=== PATIENT | male | born 1970 | race Caucasian/White ===

== ENCOUNTER → 2018-06-21 15:43 | Outpatient (CLI) | payer BC, SELFPAY | PROVIDERS: Family Provider Family Medicine; PCP Family Medicine; Visit Provider Otolaryngology Otolaryngology/Facial Plastic Surgery | DX: J32.9 Chronic sinusitis, unspecified (principal) | CPT/HCPCS: 87070; 87186; 87205 ==

== ENCOUNTER → 2021-05-31 10:21 | Outpatient (CLI) | payer OTHER, SELFPAY ==
--- NOTE | 2021-05-31 10:31 | BD_ITS ---
STUDY: DUAL ENERGY X-RAY ABSORPTIOMETRY / DXA REASON FOR EXAM: Male, 51 years old. S32.010A -- COMPRESSION FX TECHNIQUE: Bone Mineral Density (BMD) measurements of lumbar spine and bilateral hips were obtained. COMPARISON: None. FINDINGS: Lumbar Spine (L1-L4): g/cm2 (0.833) / T-score (-2.3) / Z-score (-2.0) Findings are suggestive of osteopenia with a high fracture risk. Left Femur Total: g/cm2 (0.808) / T-score (-1.5) / Z-score (-1.2) Left Femoral Neck: g/cm2 (0.739) / T-score (-1.4) / Z-score (-0.7) Right Femur Total: g/cm2 (0.883) / T-score (-1.0) / Z-score (-0.7) Right Femoral Neck: g/cm2 (0.774) / T-score (-1.1) / Z-score (-0.4) BD/Dexa Bone Density Study IMPRESSION: The patient is considered osteopenic as outlined below according to World Sunil Organization (WHO) criteria with a high fracture risk. Reference Information: The T-score is the number of standard deviations above or below the standard which is normal for young adults at their peak bone mineral density. The World Health Organization (WHO) interprets the T-scores as follows: Above -1 Normal bone density Between -1 and -2.5 Osteopenia Equal to / or below -2.5 Osteoporosis As a practical clinical guideline, osteopenia may be graded as follows: Mild -1 through -1.5 Moderate -1.6 through -2.0 Severe -2.1 through -2.4 The Z-score is the number of standard deviations above or below age-matched controls. A Z-score of less than -1.5 would be considered abnormal. References: 1. NIH Osteoporosis and Related Bone Diseases www osteo.org 2. International Society for Clinical Densitometry www iscd.org 3. National Osteoporosis Foundation www nof.org Electronically Signed: Ha Grier MD at 15:09 EDT , Service support ,
== END ==
PROVIDERS: PCP Family Medicine; Referring Provider Family Medicine; Visit Provider Family Medicine
DX: S32.010A Wedge compression fracture of first lumbar vertebra, initial encounter for closed fracture (principal)
CPT/HCPCS: 77080

== ENCOUNTER → 2023-04-16 | Outpatient (CLI) | payer BC, SELFPAY ==
[2023-04-16 11:27] LABS: Hematocrit 44.9 % (40-54); Hemoglobin 15.2 g/dL (13.0-16.5); Mean Corp Hgb Conc 33.9 g/dL (32-36); Mean Corpuscular Hgb 30.3 pg (27.0-32.0); Mean Corpuscular Volume 89.4 fL (80-94); Mean Platelet Vol. 9.8 fl (6.2-12.0); Platelet Count 255 K/mm3 (150-450); RBC Distribution Width CV 13.3 % (11.6-14.6); Red Blood Count 5.02 M/mm3 (4.6-6.2); White Blood Count 5.9 K/mm3 (4.4-11.0)
[2023-04-16 11:40] LABS: Prothrombin Time (Protime)PT. 13.1 SECONDS (11.7-14.9)
[2023-04-16 11:41] LABS: Partial Thromboplast Time 30.1 Seconds (24.1-36.2)
== END | disposition home or self-care (01) ==
LOC: PAVLAB 11:06
PROVIDERS: PCP Family Medicine; Referring Provider Internal Medicine Critical Care Medicine; Visit Provider Internal Medicine Critical Care Medicine
DX: R59.0 Localized enlarged lymph nodes (principal)
CPT/HCPCS: 36415; 85027; 85610; 85730

== ENCOUNTER 2023-04-27 10:31 | Day surgery (SDC) | payer BC, SELFPAY ==
--- NOTE | 2023-04-27 | ASPIG_PTH ---
PATIENT: ADAM CERDA LOC: EN U#:[id number] AGE/SX: 52/M ROOM: RE04/27/[address]: Dr. Gustavo Alcantara MD : 1970 BED: DIS: 04/27/2023 SPEC #: [id number] RECD: 04/27/23 15:00 STATUS: BOWEN ANNY #: [id number] RACHNA: 04/27/23 00:[address]: Gustavo Alcantara DEPT: CYTOLOGY RECD BY: Kd Easley ENTERED: 04/30/23 07:07 SP TYPE: ASP OUT OTHR DR: Dr. Dinesh Lamar MD Tissues: A - Lung, NOS B - Lung, NOS C - Lung, NOS D - Lung, NOS E - Lung, NOS F - Lung, NOS G - Lung, NOS H - Lung, NOS I - Lung, NOS J - Lung, NOS K - Lung, NOS Procedures: FNA Specimen Adequacy Special Stain Group II Surgery Specimen Level IV Cytology Other HEADER OPERATION: Endobronchial ultrasound PRE-OP DIAGNOSIS: Mediastinal lymphadenopathy TISSUE SUBMITTED: A - EBUS, TBNA, site 7 #1, B - EBUS, TBNA, site 7 #2, C - EBUS, TBNA, site 7 #3, D - EBUS, TBNA, site 7 #4, E - EBUS, TBNA, site 7 #5, F - EBUS, TBNA, site 7 #6, G - EBUS, TBNA, site 7 #7, H - EBUS, TBNA, site 4R #8, I - EBUS, TBNA, site 4R #9, J - EBUS, TBNA, site 7, K - EBUS, TBNA, site 4R DIAGNOSIS CYTOLOGY A. EBUS, TBNA, site 7 #1 (smears): Respiratory epithelial cells noted. Negative for malignant cells. B. EBUS, TBNA, site 7 #2 (smears): Bloody specimen. Respiratory epithelial cells noted. Negative for malignant cells. C. EBUS, TBNA, site 7 #3 (smears): Respiratory epithelial cells and cartilage noted. Negative for malignant cells. D. EBUS, TBNA, site 7 #4 (smears): Bloody specimen. A few lymphocytes noted. Negative for malignant cells or granulomas. E. EBUS, TBNA, site 7 #5 (smears): Bloody specimen. Respiratory epithelial cells noted. Negative for malignant cells. F. EBUS, TBNA, site 7 #6 (smears): Bloody specimen. Respiratory epithelial cells noted. Negative for malignant cells. G. EBUS, TBNA, site 7 #7 (smears): Bloody specimen. H. EBUS, TBNA, site 4R #8 (smears): Paucicellular specimen, respiratory epithelial cells noted. Negative for malignant cells. I. EBUS, TBNA, site 4R #9 (smears): Respiratory epithelial cells and a few lymphocytes noted. J. EBUS, TBNA, site 7 fluid (cytospin and cell block): Negative for malignant cells. See cytology study and comment. K. EBUS, TBNA, site 4R fluid (cytospin and cell block): Negative for malignant cells. See cytology study and comment. SJ:edis 04/30/2023 COMMENT The specimen is evaluated at the time of procedure by Dr. Moses. Rapid On-site Evaluation: A. EBUS, TBNA, site 7 #1: Respiratory epithelial cells noted. Negative for malignant cells. B. EBUS, TBNA, site 7 #2: Bloody specimen. Respiratory epithelial cells noted. Negative for malignant cells. C. EBUS, TBNA, site 7 #3: Respiratory epithelial cells and cartilage noted. Negative for malignant cells. D. EBUS, TBNA, site 7 #4: Bloody specimen. A few lymphocytes noted. Negative for malignant cells or granulomas. E. EBUS, TBNA, site 7 #5: Bloody specimen. Respiratory epithelial cells noted. Negative for malignant cells. F. EBUS, TBNA, site 7 #6: Bloody specimen. Respiratory epithelial cells noted. Negative for malignant cells. G. EBUS, TBNA, site 7 #7: Bloody specimen. H. EBUS, TBNA, site 4R #8: Respiratory epithelial cells noted. Negative for malignant cells. I. EBUS, TBNA, site 4R #9: Respiratory epithelial cells and a few lymphocytes noted. A-I. Granulomas are not seen. Correlation with clinical, radiologic findings and appropriate follow up are necessary. CYTOLOGY STUDY Slides are reviewed. J. The specimen is bloody and shows rare respiratory epithelial cells and rare lymphocytes. Negative for granuloma. K. The specimen is paucicellular and consists of rare lymphocytes and respiratory epithelial cells. Granulomas are not seen. CYTOLOGY GROSS A - Received labeled with the patient's name and and designated EBUS, TBNA, site 7 #1. The specimen consists of two stained smears for ROBB (Rapid On-site Evaluation). B - Received labeled with the patient's name and and designated EBUS, TBNA, site 7 #2. The specimen consists of two stained smears for ROBB. C - Received labeled with the patient's name and and designated EBUS, TBNA, site 7 #3. The specimen consists of two stained smears for ROBB. D - Received labeled with the patient's name and and designated EBUS, TBNA, site 7 #4. The specimen consists of two stained smears for ROBB. E - Received labeled with the patient's name and and designated EBUS, TBNA, site 7 #5. The specimen consists of two stained smears for ROBB. F - Received labeled with the patient's name and and designated EBUS, TBNA, site 7 #6. The specimen consists of two stained smears for ROBB. G - Received labeled with the patient's name and and designated EBUS, TBNA, site 7 #7. The specimen consists of two stained smears for ROBB. H - Received labeled with the patient's name and and designated EBUS, TBNA, site 4R #8. The specimen consists of two stained smears for ROBB. I - Received labeled with the patient's name and and designated EBUS, TBNA, site 4R #9. The specimen consists of two stained smears for ROBB. J - Received in RPMI is 20 ml of pink, needle rinsed fluid labeled with the patient's name and and designated EBUS, TBNA, site 7. The specimen is submitted for cell block preparation. K - Received in RPMI is 20 ml of pink, needle rinsed fluid labeled with the patient's name and and designated EBUS, TBNA, site 4R. The specimen is submitted for cell block preparation. / ANAYELI:edis 04/27/2023 TC:5 CPT: 92248 x2, 52474 x9, 51253 x2, 62939 x2
[2023-04-27 10:50] VITALS: BP 121/67; PULSE 62; RESP 16; TEMP 36.1; O2SAT 100; BMI 24.5
[2023-04-27] MEDS: Lidocaine Jelly 2% 20 ML Syringe (URO-JET) 1 APPLIC (12:30)
--- NOTE | 2023-04-27 14:03 | OP.BRONCH_ITS ---
Patient Name: Jam Henderson Procedure Date: 04/27/2023 12:04 PM Date of : 1970 Age: 52 Procedure: Bronchoscopy Indications: Mediastinal adenopathy Providers: Gustavo Alcantara MD Medicines: See the Anesthesia note for documentation of the administered medications Complications: No immediate complications Procedure: Pre-Anesthesia Assessment: - A History and Physical has been performed. Patient meds and allergies have been reviewed. The risks and benefits of the procedure and the sedation options and risks were discussed with the patient. All questions were answered and informed consent was obtained. Patient identification and proposed procedure were verified prior to the procedure by the physician, the nurse and the client care consultant in the procedure room. Mental Status Examination: alert and oriented. Airway Examination: normal oropharyngeal airway. Respiratory Examination: clear to auscultation. CV Examination: RRR, no murmurs, no S3 or S4. ASA Grade Assessment: II - A patient with mild systemic disease. After reviewing the risks and benefits, the patient was deemed in satisfactory condition to undergo the procedure. The anesthesia plan was to use monitored anesthesia care (MAC). Immediately prior to administration of medications, the patient was re-assessed for adequacy to receive sedatives. The heart rate, respiratory rate, oxygen saturations, blood pressure, adequacy of pulmonary ventilation, and response to care were monitored throughout the procedure. The physical status of the patient was re-assessed after the procedure. After I obtained informed consent, the scope was passed under direct vision. Throughout the procedure, the patient's blood pressure, pulse, and oxygen saturations were monitored continuously. The ultrasound bronchoscope was introduced through the mouth, via laryngeal mask airway and advanced to the tracheobronchial tree. The procedure was accomplished without difficulty. The patient tolerated the procedure well. Findings: The laryngeal mask airway is in good position. The vocal cords appear normal. The subglottic space is normal. The trachea is of normal caliber. The suni is sharp. The tracheobronchial tree was examined to at least the first subsegmental level. Bronchial mucosa and anatomy are normal; there are no endobronchial lesions, and no secretions. The scope was withdrawn and replaced with the EBUS bronchoscope to accomplish the ultrasound examination. Lymph Nodes: An endobronchial ultrasound endoscope was utilized to systematically examine the right lower paratracheal region (level 4R) and subcarinal mediastinum (level 7) in order to assist with fine needle aspiration. Lymph node sizing was performed via endobronchial ultrasound. Sampling by transbronchial needle aspiration was also performed using an Olympus EBUS-TBNA 21 gauge needle in the right lower paratracheal region (level 4R) and subcarinal mediastinum (level 7) and sent for routine cytology. - The 7 (subcarinal) node was 20 mm by EBUS. Seven samples with the needle were obtained. - The 4R (lower paratracheal) node was 15 mm by EBUS. Three samples with the needle were obtained. Lymph Nodes: Lymph Nodes: Rapid On-Site Evaluation (ROBB): Preliminary cytology was suggestive of benign-appearing lymphoid tissue (final results are pending) in the subcarinal mediastinum (level 7). The cellularity of the specimen was adequate in the right lower paratracheal region (level 4R). Bronchoalveolar lavage was performed in the RUL apical segment (B1) of the lung and sent for CD4:CD8. 60 mL of fluid were instilled. 25 mL were returned. The return was clear. There were no mucoid plugs in the return fluid. Multiple specimens were obtained and pooled into one specimen, which was sent for analysis. Impression: - Mediastinal adenopathy - The airway examination was normal. - Endobronchial ultrasound was performed. - Lymph node sizing and sampling was performed. Tissue has not been obtained. However, the clinical appearance is suggestive of sarcoid. - Rapid On-Site Evaluation (RBOB): Preliminary cytology was suggestive of benign-appearing lymphoid tissue in node level 7 and the cellularity of the specimen was adequate in node level 4R (final results are pending). - Bronchoalveolar lavage was performed. Recommendation: - The patient will be observed post-procedure, until all discharge criteria are met. - Await BAL and cytology results. - Patient has a contact number available for emergencies. The signs and symptoms of potential delayed complications were discussed with the patient. Return to normal activities tomorrow. Written discharge instructions were provided to the patient. Procedure Code(s): --- Professional --- 48571, Bronchoscopy, rigid or flexible, including fluoroscopic guidance, when performed; with endobronchial ultrasound (EBUS) guided transtracheal and/or transbronchial sampling (eg, aspiration[s]/biopsy[ies]), 3 or more mediastinal and/or hilar lymph node stations or structures 28072, Bronchoscopy, rigid or flexible, including fluoroscopic guidance, when performed; with bronchial alveolar lavage Diagnosis Code(s): --- Professional --- R59.0, Localized enlarged lymph nodes R09.89, Other specified symptoms and signs involving the circulatory and respiratory systems CPT copyright 2017 [employer]. All rights reserved. The codes documented in this report are preliminary and upon hydro operator review may be revised to meet current compliance requirements. MD Gustavo Moran MD 04/27/2023 2:03:30 PM This report has been signed electronically. Number of Addenda: 0 Note Initiated On: 04/27/2023 12:04 PM
--- NOTE | 2023-04-27 14:55 | SUR.PHASEII ---
SEE DOWNTIME FORMS FOR SDC DOCUMENTATION.
[2023-04-27 15:35] VITALS: BP 121/63; BP 121/67; PULSE 71; RESP 17; TEMP 36.4; O2SAT 96
--- NOTE | 2023-04-27 15:35 | HP.PCM_ITS ---
History and Physical Date of Admission: 04/27/23 I have examined the patient and the H&P has been reviewed. There are no clinical changes since date of exam. Assessment and Plan Assessment and Plan (1) LAD (lymphadenopathy), mediastinal: Status: Acute Plan: I agree with Dr. Madiha Arana's assessment that this is highly concerning for sarcoidosis. It is unclear if patient will require therapy, but a definitive biopsy is necessary to make the diagnosis. Did discuss the possibility of doing a CT-guided biopsy, but risks and success rate will be higher using an endobronchial approach. After review the risks, benefits and alternatives, patient has agreed to proceeding with an EBUS. Coagulation studies and platelet count will be requested. Patient is tentatively scheduled for 12:00 on 04/27/2023 for an EBUS. These results can be sent to Dr. Arana as he would like her to continue to work through the sarcoidosis diagnosis with him. This is reasonable from my perspective. Patient does not need to follow-up with nurse practitioner if Dr. Arana is able to give results Tentatively planning EBUS on 04/27/2023. Orders: Orders Bronchoscopy Today R59.0 - Localized enlarged lymph nodes CBC-Complete Blood Cnt No Diff Today R59.0 - Localized enlarged lymph nodes Partial Thromboplast Time Today R59.0 - Localized enlarged lymph nodes Prothrombin Time w/INR Today R59.0 - Localized enlarged lymph nodes Plan Details Follow Up: 1 Month (CSM) HPI EVALUATE FOR EBUS Details: Patient is a 52-year-old male, currently under the care of Dr. Lamar, who presents as a consult from Dr. Arana secondary to a need for possible EBUS. Patient reportedly had presented to his primary care physician complaining of some chest pain. This subsequently led to a chest x-ray and then a subsequent CT scan. Patient has had an extensive work-up including an autoimmune work-up, but there is significant concern for sarcoidosis given parenchymal and mediastinal lymphadenopathy. Patient states he is relatively asymptomatic at this time, but is interested in finding out what this is. Patient states he does use Flonase as needed. Patient has not seen a developer programmer analyst prior to this abnormal CT scan. Patient is not using any inhalers now or at any time in the past. Patient denies any environmental exposures. Patient states his son does have chickens and sheep, but he is not routinely exposed to these animals. Patient states he does have a dog, but has never been told of any allergies previously. Patient does not have any occupational concerns for exposure including silica. Patient has not had any hemoptysis or unintentional weight loss. Patient does carry a diagnosis of obstructive sleep apnea. Patient reportedly is compliant with his CPAP therapy and benefiting from therapy. Patient is not reporting any pain at the interface site and denies any epistaxis. Patient states his exercise tolerance is unchanged at this time. Patient states he has not had any palpitations or lower extremity edema. There has been no change in vision. Review of systems otherwise negative from a constitutional, HEENT, respiratory, cardiovascular, GI, genitourinary, musculoskeletal, skin, ne urologic, psychiatric and hematologic system unless stated above. Documentation reviewed prior to the office visit 36 pages of documentation were reviewed prior to the office visit. Patient did have a CT scan completed at [facility] on February 08, 2023 showing a 3.5 cm patchy consolidative opacity in the right upper lobe with innumerable bilateral lung nodules. Patient also had an VICTORIANO level of 60. Some documentation is difficult to review secondary to fax quality. Patient reportedly does have a history of JORY and is compliant with CPAP therapy. Patient does have a history of a nephrectomy in the past and has had an echo showing an EF of 58% with normal diastolic dysfunction and no valvular abnormalities. Patient was noted to have a white blood cell count of 6.62 with 10.1% eosinophils. Patient was seen at the pulmonary clinic by Dr. Arana. Patient reportedly does have exposure to dogs, sheep and chickens. There was some concern for sarcoidosis and there is a recommendation for an EBUS. PFTs were suggestive, but not available for review. Intake Vital Signs 04/16/2307:12 Height 6 ft 4 in Weight: 90.718 kg BMI 24.3 BP 116/79 Blood Pressure Location Rt brachial Position Sitting Respiration 18 Pulse 76 Pulse Source Monitor Temp 36.2 C L Temperature Source Temporal Artery Pulse Oximetry (%) 96 Oxygen Delivery Method room air Intake Visit Reasons: EVALUATE FOR EBUS Stitch Marker Required: No DME Vendor: isabella-- yaneth Accompanied by: Self Is patient in pain?: No Allergies No Known Allergies Allergy (Verified 04/16/23 10:20) Medications bupropion HCl 150 mg 24 hr tablet, extended release 150 mg PO QAM 04/16/23 [History Confirmed 04/16/23] calcium carbonate 600 mg calcium (1,500 mg) tablet (Calcium) 1,200 mg PO DAILY 04/16/23 [History Confirmed 04/16/23] cholecalciferol (vitamin D3) 50 mcg (2,000 unit) capsule 50 mcg PO DAILY 07/30 [History Confirmed 04/16/23] famotidine 20 mg tablet 20 mg PO QHS 04/16/23 [History Confirmed 04/16/23] fluticasone propionate 50 mcg/actuation nasal spray,suspension 1 spray intranasal DAILY PRN 04/16/23 [History Confirmed 04/16/23] glucosamine 750 ln-ovzrkwbcsez-xuv no1 625 mg-C 30 mg-quincy 1 mg tablet (Svqxrkpdrio-Bmbwlifxmsu-ZWR) 1 tab PO DAILY 04/16/23 [History Confirmed 04/16/23] tadalafil 20 mg tablet 20 mg PO DAILY PRN 04/16/23 [History Confirmed 04/16/23] PFSH Medical History Aneurysm Compression fracture of L1 lumbar vertebra Erectile dysfunction Osteopenia Renal cyst, left Surgical History H/O colonoscopy H/O vasectomy History of hernia repair History of nephrectomy, right Hx of tonsillectomy Family History Grandmother Alzheimer disease Social History Smoking Status: Never smoker second hand exposure: Yes alcohol intake: current alcohol intake frequency: holidays/special occasions only substance use type: does not use caffeine: Yes Exam Const Constitutional: Positive conversant, cooperative, in no acute respiratory distress, healthy appearing, well developed, well nourished and good hygiene Head Head: Yes normocephalic, Yes atraumatic and No cyanosis of lips/distal nose Eyes Eye: Positive clear conjunctiva; Negative nystagmus, scleral abnormality or cataract present Ears Ear: Positive hearing normal and external ears normal; Negative hard of hearing Nose Nose: Yes external nose normal, No nasal polyp and Yes septum normal Mouth Mouth: Positive oral mucosae normal, no lesions and good dentition; Negative oral thrush present or post nasal drip Mallampati Score: II: Mallampati Score Neck Neck: Positive normal visual inspection, full ROM and trachea midline; Negative lymphadenopathy or JVD Chest Wall Chest: Positive normal inspection of the chest and symmetric chest movement; Negative crepitus or tenderness Resp lung sounds: Positive clear to auscultation, good air exchange and normal expiratory time; Negative wheezes, wheeze present on forced exhalation, rhonchi, rales, dullness or use of accessory muscles Cardio Cardiac: Positive regular rate, regular rhythm, S1 normal and S2 normal; Negative murmur, rub or gallop GI GI: Positive normal to inspection and normal bowel sounds; Negative distended, ascites or epigastric tenderness Genitourinary: Positive deferred Musc Musculoskeletal: Positive steady gait; Negative using an assistive device for ambulation, kyphosis or scoliosis Skin Pulmonary Skin Exam: Positive intact; Negative lesion, rash, ulcers or erythema Pulses Pulse: Yes radial pulses present Extremities Extremities: Yes capillary refill normal, No clubbing, No cyanosis and No edema Neuro Neurologic: Yes no focal neuro deficits, Yes conversant, Yes cooperative, Yes normal cognition, Yes normal coordination, Yes normal concentration and Yes understands questions Lymph Lymphatic: No lymphadenopathy Psych Appearance: Positive grossly normal Mental Status: Positive mental status grossly normal Mood: Positive congruent mood Affect: Positive normal affect
== END 2023-04-27 15:36 | disposition home or self-care (01) ==
LOC: EN 10:31 → AC 10:33
PROVIDERS: PCP Family Medicine; Referring Provider Internal Medicine Critical Care Medicine; Visit Provider Internal Medicine Critical Care Medicine
PROC: BB4BZZZ Ultrasonography of Pleura (ICD-10-PCS; CPT 31624; principal; 2023-04-27 11:30)
DX: R59.0 Localized enlarged lymph nodes (principal); R07.9 Chest pain, unspecified; R91.8 Other nonspecific abnormal finding of lung field; G47.33 Obstructive sleep apnea (adult) (pediatric); R09.89 Other specified symptoms and signs involving the circulatory and respiratory systems
CPT/HCPCS: 31624; 31653; 87015; 87101; 87116; 87206; 88161; 88172; 88305; 88313; J7120; J2405

== ENCOUNTER → 2023-08-13 | Outpatient (CLI) | payer BC, SELFPAY ==
--- NOTE | 2023-08-13 16:46 | CT_ITS ---
ACR Level 3 findings have been noted. An addendum which confirms receipt of the report will follow. EXAM: CT CHEST WITHOUT INTRAVENOUS CONTRAST CLINICAL INDICATION: possible sarcoid TECHNIQUE: Helically acquired images were obtained of the chest without intravenous contrast. This CT exam was performed using one or more of the following dose reduction techniques: automated exposure control, adjustment of the mA and/or kV according to patient size, and/or use of iterative reconstruction technique. RADIATION DOSE: CTDIvol = 10.69 mGy, DLP = 472.89 mGy-cmContrast: COMPARISON: No prior chest CT provided. CT abdomen and pelvis August 11, 2016. FINDINGS: LUNGS AND PLEURAL SPACES: Multiple and bilateral indeterminate lung findings. Most pronounced is a irregular masslike opacity spiculated margins and some peripheral airways or slight peripheral calcification in the right upper lobe, overall size at least 3.1 cm x 2.6 cm x 2.7 cm. This may be due to neoplasm, inflammation or scarring. At least one additional similar spiculated parenchymal density of 1.8 cm x 1.6 cm x 2.2 cm in the more inferior right upper lobe near the major fissure. At least 3 additional less spiculated nodules in the right lung, one rounded and juxtapleural in the right lower lobe adjacent to the major fissure, measuring 0.9 cm x 0.8 cm x 0.9 cm with faint spiculated margins. Another nodule of 0.6 cm x 0.7 cm x 0.7 cm with mildly poorly defined and faintly spiculated margins in the superior segment of the right lower lobe. Mild irregular discontinuous spiculated nodular opacity in the medial left upper lobe, roughly 1.6 cm x 1.2 cm x 1.3 cm. At least 4 additional ill-defined left upper lobe nodules. Juxtapleural nodule also in the left lower lobe abutting the major fissure measuring roughly 0.6 cm x 0.6 cm. Ill-defined nodule adjacent to more central lower lobe pulmonary vessels measuring 0.8 cm x 0.8 cm, and smaller more anterior 6 mm left lower lobe nodule. HEART: Unremarkable. Heart size is normal. No pericardial effusion. No significant coronary artery calcifications. MEDIASTINUM: Mildly thick-walled appearance of distal esophagus-GE junction, increased from prior exam. No mediastinal or hilar adenopathy. THYROID: Unremarkable. No thyroid lesions. BONES/JOINTS: Unremarkable. No suspicious lytic or blastic abnormality. VASCULATURE: Unremarkable. Thoracic aorta is non-dilated. LYMPH NODES: There is mild-moderate lymphadenopathy in the middle mediastinum, numerous noncalcified nodes, the largest roughly 1.6 cm x 1.5 cm in the right paratracheal region and at least 1.1 cm x 1.6 cm in the right precarinal region. Multiple mildly enlarged right hilar lymph nodes with amorphous internal calcifications, not well evaluated on the unenhanced CT but at least 1.1 cm x 1.5 cm. Left paraesophageal nodule with some new amorphous central calcification, this measures roughly 1 cm x 0.9 cm. Possibly granulomatous node. GALLBLADDER AND BILE DUCTS: Partially contracted gallbladder is only partially included. KIDNEYS AND URETERS: Surgical clips in the expected region of the right kidney, not fully included. Mildly prominent left renal pelvis appears similar to 2016, roughly 1.9 cm AP, it was 1.9 cm. STOMACH AND BOWEL: Moderate mixed density material in the partially included stomach. Moderate stool in the splenic flexure of the colon. CT/Chest without Contrast IMPRESSION: 1. Mildly thick-walled appearance of distal esophagus-GE junction, cannot exclude underlying early mass or inflammation. Likely collapsed. Consider endoscopy if it is thought to be indicated. 2. Mild-moderate mediastinal adenopathy. Largely noncalcified, cannot exclude neoplasm such as lymphoma or small cell carcinoma or metastatic disease. 1 right subcarinal node and a few right hilar nodes are faintly calcified, correlate with any history of treated lymphoma or granulomatous disease. 3. Numerous and bilateral indeterminate pulmonary nodules and irregular dense pulmonary opacities with spiculated margins. 4. Dominant spiculated mass in the right upper lobe. Due to the size and asymmetry additional evaluation such as PET/CT with special attention to the right upper lobe mass and mediastinal adenopathy is recommended. Alternatively right upper lobe biopsy and mediastinoscopy could be considered. 5. Correlate with any history of primary neoplasm and any evidence of lymphoma or other lymphoproliferative disease. Electronically Signed: Antonietta Wilhelm MD at 9:24 EST ,
== END | disposition home or self-care (01) ==
LOC: CT 16:46
PROVIDERS: PCP Family Medicine; Referring Provider Nurse Practitioner Acute Care; Visit Provider Nurse Practitioner Acute Care
DX: R59.0 Localized enlarged lymph nodes (principal)
CPT/HCPCS: 71250

== ENCOUNTER → 2023-12-04 | Outpatient (CLI) | payer BC, SELFPAY | END | disposition home or self-care (01) | PROVIDERS: PCP Family Medicine; Referring Provider Internal Medicine Critical Care Medicine; Visit Provider Internal Medicine Critical Care Medicine | DX: R59.0 Localized enlarged lymph nodes (principal) | CPT/HCPCS: 94060; 94726; 94729 ==

== ENCOUNTER → 2024-05-15 | Outpatient (CLI) | payer BC, SELFPAY | END | disposition home or self-care (01) | LOC: PSN 13:03 | PROVIDERS: PCP Family Medicine; Referring Provider Nurse Practitioner Acute Care; Visit Provider Nurse Practitioner Acute Care | DX: R59.0 Localized enlarged lymph nodes (principal) | CPT/HCPCS: 94060; 94726; 94729 ==